=== PATIENT | male | born 1985 | race Caucasian/White ===

== ENCOUNTER 2020-11-13 08:16 | Emergency (ER) | payer OTHER, SELFPAY ==
--- NOTE | ~2020-11-13 | CT_ITS ---
EXAMINATION: CT abdomen pelvis wo con DATE: 11/13/2020 09:28 INDICATION: Left flank pain. TECHNIQUE: Computed tomography (CT) of the abdomen and pelvis was performed without intravenous contr ast. Automated exposure control and iterative reconstruction technique were employed. The dose-length product was 290.93 mGy-cm. COMPARISON: None. FINDINGS: The visualized portions of the lung bases are clear without pneumonia or pleural effusion. The heart size is normal. No pericardial effusion. The liver, spleen, gallbladder, pancreas, adrenal glands, and right kidney are normal. There is mild left hydronephrosis and hydroureter. There is a 3 mm stone at left ureteropelvic junction. There are no dilated loops of bowel. The appendix is normal. There are no pathologically enlarged lymph nodes. There is no free intraperitoneal fluid. There is m ild thoracolumbar spondylosis. IMPRESSION: 1. 3 mm stone at left ureterovesicular junction with mild left hydronephrosis and hydroureter. Reviewed, dictated and finalized at location A. IMPRESSION: 1. 3 mm stone at left ureterovesicular junction with mild left hydronephrosis a nd hydroureter.
--- NOTE | ~2020-11-13 | XR_ITS ---
XR abdomen/kub 1V 11/13/2020 09:47 INDICATION: Flank pain TECHNIQUE: KUB COMPARISON: CT dated 11/13/2020 FINDINGS: Bowel gas pattern is normal. There is no evidence of free air, mass, organomegaly, ascites or obstruction. There is a faint calcification in the left pelvis corresponding to the 2 mm left UVJ stone noted on CT examination. The bones appear intact. IMPRESSION: 1: 2 mm left UVJ stone. Reviewed, dictated and finalized at location B. IMPRESSION: 1: 2 mm left UVJ stone.
[2020-11-13 08:37] VITALS: BP 159/112; PULSE 74; RESP 14; TEMP 36.6; O2SAT 99
[2020-11-13 08:38] LABS: Basophils Absolute Auto 0.1 K/mm3 (0.0-0.1); Basophils Percent Auto 0.9 % (0.2-1.2); Eosinophils Absolute Auto 0.3 K/mm3 (0-0.3); Eosinophils Percent Auto 3.5 % (0-4.4); Hematocrit 47.5 % (42.0-52.0); Hemoglobin 16.4 g/dL (14.0-18.0); Immature Granulocyte Absolute 0.02 K/mm3 (0.00-0.031); Immature Granulocyte Percent A 0.3 % (0-0.5); Lymphocytes Absolute Auto 3.04 K/mm3 (0.9-3.2); Lymphocytes Percent Auto 38.2 % (18.3-44.2); Mean Corpuscular HGB Conc 34.5 g/dl (32-36); Mean Corpuscular Hemoglobin 30.1 pg (26-34); Mean Corpuscular Volume 87.2 fl (80-100); Mean Platelet Volume 9.7 fl (7.4-10.4); Monocytes Absolute Auto 0.7 K/mm3 (0.1-0.6); Monocytes Percent Auto 8.5 % (2.6-8.5); Neutrophils Absolute Auto 3.9 K/mm3 (1.3-6.7); Neutrophils Percent Auto 48.6 % (45.5-73.1); Platelet Count Result 300 k/mm3 (150-375); Red Blood Count 5.45 M/mm3 (4.6-6.20); Red Cell Distribution Width 11.9 % (11.5-14.5)
[2020-11-13 08:41] LABS: Add Urine Microscopic? YES; Appearance Urine Clear (Clear); Bilirubin Urine Negative (Negative); Blood Urine 2+ (Negative); Color Urine Yellow (Yellow); Glucose Urine UA Negative (Negative); Ketones Urine Negative (Negative); Leukocyte Esterase Ur Negative LEU/UL (Negative); Mucus Urine Heavy /lpf; Nitrate Urine Negative (Negative); Protein Urine Negative (Negative); RBC Urine 21-50 /hpf (0-2); Specific Grav Ur 1.026 (1.001-1.035); Urobilinogen Urine Negative mg/dL (<2.0); WBC Urine 0-3 /hpf
[2020-11-13 08:49] LABS: Anion Gap 9 mmol/L (8-16); Blood Urea Nitrogen 17 mg/dL (9-20); Calcium 9.5 mg/dL (8.4-10.2); Carbon Dioxide 27 mmol/L (22-30); Chloride 106 mmol/L (98-107); Estimated CRCL calculation 97 ml/min; Estimated Glomerular Filt Rate > 60; Glucose 136 mg/dL (75-110); Potassium 3.6 mmol/L (3.4-5.0); Sodium 142 mmol/L (137-145)
[2020-11-13] MEDS: MORPHINE SULFATE (*CRX) 4 MG/ML INJ IV PUSH (09:19)
[2020-11-13] MEDS: ONDANSETRON INJ 4 MG/2 ML VIAL IV PUSH (09:19)
--- NOTE | 2020-11-13 09:22 | ED.BACK ---
HPI - Back Pain/Injury General Chief Complaint: Urogenital-Male Stated Complaint: left flank pain Time Seen by Provider: 11/13/20 09:08 Source: patient Mode of arrival: ambulatory Limitations: no limitations History of Present Illness HPI Narrative: This is a 35-year-old male that presents the emergency department for left flank pain since this morning. Associated with nausea and dysuria. Reports that radiates to the front of the abdomen. Reports history of kidney stones. Denies fever, vomiting, or hematuria. Related Data Allergies Allergy/AdvReac Type Severity Reaction Status Date / Time cefaclor [From Ceclor] Allergy Unknown Verified 11/13/20 08:40 Review of Systems Review of Systems: Narrative: CONSTITUTIONAL: Denies fever GASTROINTESTINAL: Reports abdominal pain, nausea. Denies vomiting, or diarrhea. GENITOURINARY: Reports dysuria. Denies hematuria. All systems reviewed & are unremarkable except as noted in HPI and below PMFSH Past Medical History Medical History (Updated 11/13/20 @ 11:50 by Елена Castro PA-C) No active medical problems Social History Social History (Updated 11/13/20 @ 09:23 by Елена Castro PA-C) Substance use: never Exam Narrative: Exam Narrative: GENERAL: Well-appearing, well-nourished, and in no acute distress. HEAD: Normocephalic, atraumatic. EYES: EOMI. CHEST: Clear to auscultation. No respiratory distress. No wheezes rales or rhonchi HEART: Regular rate and rhythm. No murmur heard. Normal peripheral pulses. ABDOMEN: Soft, nondistended, normal active bowel sounds. Tender to palpation throughout the left side of the abdomen, without guarding. Left-sided CVA tenderness EXTREMITIES: Normal range of motion. No edema. SKIN: Warm, dry, no rash. NEURO: No focal deficits. Alert and oriented x3. PSYCH: Normal mood and affect Course Consultations Consultation #1: Spoke with Dr. Ferris about patient and work-up. Patient will be started on Flomax and given pain medication. He will be given a urine strainer. He is to follow-up in clinic. Date: 11/13/20 Time: 11:49 Vital Signs Vital signs: Vital Signs Temperature 97.8 F 11/13/20 08:37 Pulse Rate 74 11/13/20 08:37 Respiratory Rate 14 11/13/20 08:37 Blood Pressure 159/112 H 11/13/20 08:37 Pulse Oximetry 99 11/13/20 08:37 Temperature 97.8 F 11/13/20 08:37 Pulse Rate 68 11/13/20 10:32 Respiratory Rate 14 11/13/20 10:32 Blood Pressure 140/92 H 11/13/20 10:32 Pulse Oximetry 100 11/13/20 10:32 MDM - Back Pain/Injury MDM Narrative Medical decision making narrative: Patient presents the emergency department for left flank pain since this morning. He is afebrile and nontoxic-appearing. CBC is without leukocytosis. Metabolic panel without concerning findings. UA without evidence of infection. It does show red blood cells. CT scan abdomen and pelvis shows a 3 mm left UVJ stone. Abdomen x-ray identifies the stone. Patient given pain medication with relief. Spoke with Dr. Ferris about patient and work-up. Patient will be started on Flomax and given pain medication. He will be given a urine strainer. He is to follow-up in clinic. He is stable and felt appropriate for further outpatient evaluation. He was given warnings to return to the ER Lab Data Attestation: I reviewed the patient's lab results. Result diagrams: 11/13/20 08:33 11/13/20 08:33 Labs: Lab Results 11/13/20 11/13/20 11/13/20 Range/Units 08:30 08:33 08:33 WBC 8.0 (4.5-10.0) K/mm3 RBC 5.45 (4.6-6.20) M/mm3 Hgb 16.4 (14.0-18.0) g/dL Hct 47.5 (42.0-52.0) % MCV 87.2 (80-100) fl MCH 30.1 (26-34) pg MCHC 34.5 (32-36) g/dl RDW 11.9 (11.5-14.5) % Plt Count 300 (150-375) k/mm3 MPV 9.7 (7.4-10.4) fl Immature Gran % (Auto) 0.3 (0-0.5) % Neut % (Auto) 48.6 (45.5-73.1) % Lymph % (Auto) 38.2 (18.3-44.2) % [place] % (Auto) 8.5 (2.6-8.5) %
[2020-11-13 10:32] VITALS: BP 140/92; PULSE 68; RESP 14; O2SAT 100
[2020-11-13] MEDS: KETOROLAC 30 MG/ML VIAL (*BKC) IV PUSH (11:03)
== END 2020-11-13 12:17 | disposition home or self-care (01) ==
PROVIDERS: Emergency Provider Emergency Medicine
DX: N13.2 Hydronephrosis with renal and ureteral calculous obstruction (principal)
CPT/HCPCS: 36415; 74018; 74176; 80048; 81001; 85025; 96365; 96375; 99284; J0131; J1885; J2270; J2405